=== PATIENT | male | born 1995 | race Caucasian/White ===

== ENCOUNTER 2018-03-19 14:15 | Emergency (ER) | payer SELFPAY ==
[~2018-03-19] VITALS: Ht 172.7 cm; Wt 82.6 kg
== END 2018-03-19 18:05 | disposition left against medical advice (07) ==
LOC: ED 14:15
PROC: 3E023NZ Introduction of Analgesics, Hypnotics, Sedatives into Muscle, Percutaneous Approach (ICD-10-PCS; principal; 2018-03-19)
PROC: 3E0234Z Introduction of Serum, Toxoid and Vaccine into Muscle, Percutaneous Approach (ICD-10-PCS; 2018-03-19)
DX: S62.603B Fracture of unspecified phalanx of left middle finger, initial encounter for open fracture (principal); X58.XXXA Exposure to other specified factors, initial encounter; Y92.9 Unspecified place or not applicable
CPT/HCPCS: 90715; J1885; J2001